=== PATIENT | female | born 1990 | race Hispanic/Latino ===

== ENCOUNTER 2022-04-02 18:18 | Emergency (ER) | payer BC | END 2022-04-02 21:02 | disposition home or self-care (01) | LOC: MW.ED 18:18 | DX: N39.0 Urinary tract infection, site not specified (principal) | CPT/HCPCS: 81001; 87086; 87480; 87510; 87660; 99283 ==

== ENCOUNTER 2022-06-09 18:21 | Emergency (ER) | payer BC ==
[2022-06-09 19:37] LABS: CORONAVIRUS COVID-19 NAA NEGATIVE (NEGATIVE); INFLUENZA A NAA NEGATIVE (NEGATIVE); INFLUENZA B NAA NEGATIVE (NEGATIVE); RESPIRATORY SYNCYTIAL VIR NAA NEGATIVE (NEGATIVE)
== END 2022-06-09 20:42 | disposition home or self-care (01) ==
LOC: MW.ED 18:21
DX: J01.90 Acute sinusitis, unspecified (principal); Z20.822 Contact with and (suspected) exposure to COVID-19
CPT/HCPCS: 0241U; 99283